=== PATIENT | female | born 1970 | race Caucasian/White ===

== ENCOUNTER 2016-12-28 14:54 | Emergency (ER) | payer BC ==
[2016-12-28] MEDS ORDERED: Sodium Chloride 0.9% 1,000 ML IV SCH (15:30)
[2016-12-28 15:41] LABS: CHLORIDE,CL 104 mmol/L (98-107); SODIUM,NA 138 mmol/L (136-145)
[2016-12-28] MEDS ORDERED: Ketorolac 30 MG/ML SDV IVPUSH ONE (15:49)
[2016-12-28] MEDS ORDERED: Dexamethasone 10 MG/ML SDV IVPUSH ONE (15:51)
[2016-12-28] MEDS ORDERED: Ondansetron 4 MG/2 ML SDV IVPUSH ONE (15:51)
--- NOTE | 2016-12-28 15:58 | EDM.PDOC ---
ED HPI NEURO - General Chief Complaint: Neuro Symptoms/Deficits Stated Complaint: stroke symptoms Time Seen by Provider: 12/28/16 15:10 Source of Information: Reports: Patient, Family History Limitations: Reports: No limitations - History of Present Illness INITIAL COMMENTS - FREE TEXT/NARRATIVE: Patient awoke from sleep and spent about 20 minutes texting. Began to notice a funny feeling "like numbness but could still feel" in the right hand. The feeling moved to the whole right side of the body. Presents with about 1 hour of symptoms to ER. Is weak "on the right side of Head" Speech garbled, right side arm and leg weak. Timing/Duration: Reports: Hour(s): (1) Location (Neuro Complaint): Reports: face, upper extremity, left, lower extremity, right Quality (Neuro Complaint): Reports: weakness, altered gait, altered sensation, altered speech Severity: moderate Improves with: Reports: None Worsens with: Reports: None Context, General: Reports: Other (as above) Associated Symptoms: Reports: no other symptoms. 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) - Related Data Allergies/ADRs: Allergies Allergy/AdvReac Type Severity Reaction Status Date / Time No Known Allergies Allergy Verified 12/28/16 15:31 Home Meds: Home Meds Citalopram [Celexa] 20 mg PO DAILY 12/28/16 [History] ClonazePAM [KlonoPIN] 0.5 mg PO BEDTIME 12/28/16 [History] Gabapentin [Neurontin] 600 mg PO BID 12/28/16 [History] Meloxicam 15 mg PO DAILY 12/28/16 [History] Omeprazole 20 mg PO DAILY 12/28/16 [History] tiZANidine [Zanaflex] 2 - 4 mg PO Q8H PRN 12/28/16 [History] ED ROS GENERAL - Review of Systems Review Of Systems: See Below Constitutional: Reports: no symptoms HEENT: Reports: No symptoms Respiratory: Reports: No Symptoms Cardiovascular: Reports: No symptoms Endocrine: Reports: no symptoms GI/Abdominal: Reports: No symptoms : Reports: no symptoms Musculoskeletal: Reports: no symptoms Skin: Reports: no symptoms Neurological: Reports: Paresthesia, Trouble Speaking, Difficulty Walking ( dragging right leg), Weakness, Change in Speech, Gait Disturbance. Denies: Confusion, Dizziness, Headache, Pre-Existing Deficit, Seizure, Syncope, Tingling , Tremors Psychiatric: Reports: Other (High stress lately) Hematologic/Lymphatic: Reports: no symptoms Immunologic: Reports: no symptoms ED EXAM, NEURO - Physical Exam Exam: See Below Exam Limited By: No limitations General Appearance: alert, WD/WN, no apparent distress Eye Exam: bilateral eye: EOMI, PERRL (traige nurse reported sluggish right pupil (resolved)) Ears: normal external exam Nose: normal inspection, normal mucosa, no blood Throat/Mouth: Normal inspection, Normal lips, Normal oropharynx, Normal voice, Other Head Exam: atraumatic, normocephalic Neck: normal inspection, supple, non-tender, full range of motion Respiratory/Chest: no respiratory distress, lungs clear, normal breath sounds, no accessory muscle use Cardiovascular: normal peripheral pulses, regular rate, rhythm, no edema, no murmur GI/Abdominal: normal bowel sounds, soft, non tender, no organomegaly Neurological: alert, normal mood/affect, CN II-XII intact, oriented x 3, other ( see NIH Stroke Scale) Back Exam: normal inspection Extremities: normal inspection, normal range of motion, non-tender, no pedal edema, normal capillary refill Psychiatric: normal affect, flat affect Skin Exam: Warm, Dry, Intact, Normal color, No rash Course - Vital Signs Last Recorded V/S: Last Vital Signs Temp 36.8 C 12/28/16 15:00 Pulse 73 12/28/16 15:59 Resp 16 12/28/16 15:59 BP 131/72 12/28/16 15:59 Pulse Ox 100 12/28/16 15:59 - Orders/Labs/Meds Orders: Active Orders 24 hr Category Date Time Status Blood Glucose Check, Bedside [RC] ONETIME Care 12/28/16 15:00 Active Cardiac Monitoring [RC] . DIRECTED Care 12/28/16 15:23 Active EKG Documentation Completion [RC] ASDIRECTED Care 12/28/16 15:23 Active Oxygen Therapy [RC] ASDIRECTED Care 12/28/16 15:00 Active Peripheral IV Care [RC] . DIRECTED Care 12/28/16 15:22 Active Chest 1V Frontal [CR] Stat Exams 12/28/16 15:35 Taken Head wo Cont [CT] Routine Exams 12/28/16 Taken PROLACTIN [REF] Stat Lab 12/28/16 15:05 Received Sodium Chloride 0.9% [Normal Saline] 1,000 ml Med 12/28/16 15:30 Active IV ASDIRECTED Sodium Chloride 0.9% [Saline Flush] Med 12/28/16 16:01 Active 10 ml FLUSH ASDIRECTED PRN Medication Orders Sodium Chloride (Normal Saline) 1,000 mls @ 999 mls/hr IV ASDIRECTED DESTINEY Stop: 01/01/17 15:30 Last Admin: 12/28/16 15:37 Dose: 999 mls/hr Sodium Chloride (Saline Flush) 10 ml FLUSH ASDIRECTED PRN PRN Reason: Keep Vein Open Last Admin: 12/28/16 16:02 Dose: 10 ml Labs: Laboratory Tests 12/28/16 12/28/16 12/28/16 Range/Units 15:05 15:05 15:05 WBC 6.2 (4.0-10.2) K/uL RBC 4.12 (3.77-5.09) M/uL Hgb 12.6 (11.7-15.5) g/dL Hct 38.4 (34.0-46.0) % MCV 93.2 (84.0-98.0) fL MCH 30.6 (28.2-33.3) pg MCHC 32.8 (31.7-36.0) g/dL RDW 13.2 (11.2-14.1) % Plt Count 266 (150-350) K/uL Neut % (Auto) 61.4 (45.0-80.0) % Lymph % (Auto) 26.2 (10.0-50.0) % Beadle % (Auto) 7.9 (2.0-14.0) % Eos % (Auto) 4.2 (0.0-5.0) % Baso % (Auto) 0.3 (0.0-2.0) % Neut # 3.79 (1.40-7.00) K/uL Lymph # 1.62 (0.50-3.50) K/uL Beadle # 0.49 (0.00-1.00) K/uL Eos # 0.26 (0.00-0.50) K/uL Baso # 0.02 (0.00-0.20) K/uL PT 10.1 (9.8-11.7) SEC INR 1.0 APTT (23.5-30.0) SEC D-Dimer, Quantitative (0-400) ng/mL Sodium 138 (136-145) mmol/L Potassium 3.7 (3.5-5.1) mmol/L Chloride 104 (98-107) mmol/L Carbon Dioxide 23.2 (21.0-32.0) mmol/L BUN 15 (7-18) mg/dL Creatinine 0.69 (0.51-1.17) mg/dL Est Cr Clr Drug Dosing TNP Estimated GFR (MDRD) > 60 mL/min Glucose 111 H (74-106) mg/dL Calcium 8.5 (8.5-10.1) mg/dL Magnesium 1.9 (1.8-2.4) mg/dL Total Bilirubin 0.3 (0.2-1.0) mg/dL AST 15 (15-37) U/L ALT 19 (12-78) U/L Alkaline Phosphatase 107 (46-116) IU/L Creatine Kinase 124 (26-308) U/L Creatine Kinase Index 0.5 (0.0-2.5) % CK-MB (CK-2) 0.60 (0.00-3.60) ng/mL Troponin I 0.000 (0.000-0.056) ng/mL Inv-C-Fchgthsvson Pept 126 H (0-125) pg/mL Total Protein 7.8 (6.4-8.2) g/dL Albumin 3.9 (3.4-5.0) g/dL HCG, Qual (NEGATIVE) 12/28/16 12/28/16 12/28/16 Range/Units 15:05 15:05 15:05 WBC (4.0-10.2) K/uL RBC (3.77-5.09) M/uL Hgb (11.7-15.5) g/dL Hct (34.0-46.0) % MCV (84.0-98.0) fL MCH (28.2-33.3) pg MCHC (31.7-36.0) g/dL RDW (11.2-14.1) % Plt Count (150-350) K/uL Neut % (Auto) (45.0-80.0) % Lymph % (Auto) (10.0-50.0) % Beadle % (Auto) (2.0-14.0) % Eos % (Auto) (0.0-5.0) % Baso % (Auto) (0.0-2.0) % Neut # (1.40-7.00) K/uL Lymph # (0.50-3.50) K/uL Beadle # (0.00-1.00) K/uL Eos # (0.00-0.50) K/uL Baso # (0.00-0.20) K/uL PT (9.8-11.7) SEC INR APTT 25.7 (23.5-30.0) SEC D-Dimer, Quantitative 213 (0-400) ng/mL Sodium (136-145) mmol/L Potassium (3.5-5.1) mmol/L Chloride (98-107) mmol/L Carbon Dioxide (21.0-32.0) mmol/L BUN (7-18) mg/dL Creatinine (0.51-1.17) mg/dL Est Cr Clr Drug Dosing Estimated GFR (MDRD) mL/min Glucose (74-106) mg/dL Calcium (8.5-10.1) mg/dL Magnesium (1.8-2.4) mg/dL Total Bilirubin (0.2-1.0) mg/dL AST (15-37) U/L ALT (12-78) U/L Alkaline Phosphatase (46-116) IU/L Creatine Kinase (26-308) U/L Creatine Kinase Index (0.0-2.5) % CK-MB (CK-2) (0.00-3.60) ng/mL Troponin I (0.000-0.056) ng/mL Xav-B-Jdhjknskaih Pept (0-125) pg/mL Total Protein (6.4-8.2) g/dL Albumin (3.4-5.0) g/dL HCG, Qual Negative (NEGATIVE) Meds: Medications Generic Name Dose Route Start Last Admin Trade Name Freq PRN Reason Stop Dose Admin Sodium Chloride 1,000 mls @ 999 mls/hr 12/28/16 15:30 12/28/16 15:37 Normal Saline IV 01/01/17 15:30 999 mls/hr ASDIRECTED DESTINEY Administration Sodium Chloride 10 ml 12/28/16 16:01 12/28/16 16:02 Saline Flush FLUSH 10 ml ASDIRECTED PRN Administration Keep Vein Open Discontinued Medications Generic Name Dose Route Start Last Admin Trade Name Raegan PRN Reason Stop Dose Admin Dexamethasone 4 mg 12/28/16 15:51 12/28/16 15:58 Dexamethasone IVPUSH 12/28/16 15:52 4 mg ONETIME ONE Administration Ketorolac Tromethamine 30 mg 12/28/16 15:49 12/28/16 15:52 Toradol IVPUSH 12/28/16 15:50 30 mg ONETIME ONE Administration Ondansetron HCl 4 mg 12/28/16 15:51 12/28/16 15:57 Zofran IVPUSH 12/28/16 15:52 4 mg ONETIME ONE Administration - Re-Assessments/Exams Free Text/Narrative Re-Assessment/Exam: 12/28/16 16:02 Over first 45 minutes: Speech difficulty - resolved Right arm drift - resolved Right side weakness - resolved Funny feeling in arm and leg - better Headache started in back of head and moved to right eye, temporal head, and face (pressure) Mild photophobia began. MDM: NIH stroke scale 4 at presentation, resolved to 0-1 at this time with development of a classic migraine GIRON. Will not administer TPA at this time. Continue to observe and treat GIRON Free Text/Narrative Re-Assessment/Exam: 12/28/16 16:24 1.5 hours recheck: All symptoms resolved. GIRON got to 8/10 - Now 2/10 Feels like she is ready to go. Ambulatory without problem. Departure - Departure Time of Disposition: 16:26 Disposition: Home, Self-Care 01 Condition: good Clinical Impression: Hemiplegic migraine Qualifiers: Status migrainosus presence: without status migrainosus Intractability: not intractable Qualified Code(s): G43.409 - Hemiplegic migraine, not intractable, without status migrainosus Forms: ED Department Discharge - Problem List Review Problem List Initiated/Reviewed/Updated: No - My Orders Last 24 Hours: My Active Orders 12/28/16 Head wo Cont [CT] Routine 12/28/16 15:00 Blood Glucose Check, Bedside [RC] ONETIME Oxygen Therapy [RC] ASDIRECTED 12/28/16 15:05 PROLACTIN [REF] Stat 12/28/16 15:22 Peripheral IV Care [RC] . DIRECTED 12/28/16 15:23 Cardiac Monitoring [RC] . DIRECTED EKG Documentation Completion [RC] ASDIRECTED 12/28/16 15:30 Sodium Chloride 0.9% [Normal Saline] 1,000 ml IV ASDIRECTED 12/28/16 15:35 Chest 1V Frontal [CR] Stat 12/28/16 16:01 Sodium Chloride 0.9% [Saline Flush] 10 ml FLUSH ASDIRECTED PRN - Assessment/Plan Last 24 Hours: My Active Orders 12/28/16 Head wo Cont [CT] Routine 12/28/16 15:00 Blood Glucose Check, Bedside [RC] ONETIME Oxygen Therapy [RC] ASDIRECTED 12/28/16 15:05 PROLACTIN [REF] Stat 12/28/16 15:22 Peripheral IV Care [RC] . DIRECTED 12/28/16 15:23 Cardiac Monitoring [RC] . DIRECTED EKG Documentation Completion [RC] ASDIRECTED 12/28/16 15:30 Sodium Chloride 0.9% [Normal Saline] 1,000 ml IV ASDIRECTED 12/28/16 15:35 Chest 1V Frontal [CR] Stat 12/28/16 16:01 Sodium Chloride 0.9% [Saline Flush] 10 ml FLUSH ASDIRECTED PRN Assessment:: Hemiplegic Migraine Plan: Rest, fluids today. F/U with PCP this week to discuss further treatment
[2016-12-28] MEDS ORDERED: Sodium Chloride 0.9% 10 ML Syringe FLUSH PRN (16:01)
[2016-12-28 16:37] VITALS: BP 121/69
== END 2016-12-28 16:50 | disposition home or self-care (01) ==
LOC: LL.ED 14:54
DX: G43.409 Hemiplegic migraine, not intractable, without status migrainosus (principal); Z79.899 Other long term (current) drug therapy
CPT/HCPCS: 36415; 70450; 71010; 80053; 82550; 82553; 83735; 83880; 84146; 84484; 84703; 85025; 85379; 85610; 85730; 93005; 94761; 96361; 96374; 96375; 99285; J1100; J1885; J2405; J7030; J7050; 82962

== ENCOUNTER 2018-12-16 17:16 | Emergency (ER) | payer OTHER ==
[2018-12-16 17:23] VITALS: BP 128/61
--- NOTE | 2018-12-16 18:13 | EDM.PDOC ---
ED HPI GENERAL MEDICAL PROBLEM - General Chief Complaint: Upper Extremity Injury/Pain Stated Complaint: fall at work, left arm injury Time Seen by Provider: 12/16/18 17:45 Source of Information: Reports: Patient History Limitations: Reports: No Limitations - History of Present Illness INITIAL COMMENTS - FREE TEXT/NARRATIVE: Patient comes to ER with complaints of pain related to fall that she had around 0630 this morning at work. Tripped on bed alarm cord. Fell forward, arms outstretched. Complains of right knee pain and left arm pain. Says entire left arm hurts and has difficulty pinpointing exact place where she feels her main injury is located. Pain extends down forearm/around elbow/up proximal arm when she flexes and extends arm. No numbness or tingling. No complaint of muscle weakness. Has diagnosis of fibromyalgia. Pain has worsening throughout day. Able to ambulate. Did not hit head. Denies other obvious injuries. No pain right arm/left leg/pelvis/back/abdomen/neck. 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 Denies: Allergic Rhinitis, Cataract, Glaucoma, Hard of Hearing, Macular Degeneration, Otitis Media, Retinal Detachment Other HEENT History: Patient wears glasses. Cardiovascular History: Reports: CAD, Heart Murmur, AK, Other (See Below). Denies: Afib, Aneurysm, Arrhythmia, Blood Clots/VTE/DVT, Bypass, Cardiomyopathy , Heart Failure, High Cholesterol, Hypertension, PTCA, PVD, Stents, Syncope Other Cardiovascular History: Possible AK in 2004 however no apparent heart catheterization, etc.? Respiratory History: Reports: None. Denies: Asthma, Bronchitis, Recurrent, COPD , Intubation, Difficult, Intubation, Previous, PE, Pneumonia, Recurrent, Pneumothorax, Pulmonary Fibrosis, Sleep Apnea, TB Gastrointestinal History: Reports: Chronic Constipation, GERD. Denies: Celiac Disease, Cholelithiasis, Chronic Diarrhea, Fecal Incontinence, Gastritis, GI Bleed, Hepatitis, Inflammatory Bowel Disease, Irritable Bowel Syndrome, Jaundice , Pancreatitis, PUD Genitourinary History: Reports: Urinary Incontinence. Denies: Acute Renal Failure, Chronic Renal Insuffiency, Renal Calculus, Retention, Urinary, STD, UTI , Recurrent MANAGER PROGRAM MANAGEMENT History: Reports: Dysfunctional Uterine Bleeding, , Therapeutic . Denies: Endometriosis, Fibroids Other MANAGER PROGRAM MANAGEMENT History: LMP 10/13. Full term without complications during pregnancies or deliveries. Elective AB during first trimester with procedure required as below. Musculoskeletal History: Reports: Arthritis, Back Pain, Chronic, Fibromyalgia, Neck Pain, Chronic, Osteoarthritis. Denies: Amputation, Fracture, Gout, RA, SLE Neurological History: Reports: Concussion, Headaches, Chronic, Head Trauma, Migraines, Other (See Below). Denies: Cerebral Aneurysms, CVA, MS, Parkinson's , Seizure, TIA, Vertigo Other Neuro History: Head concussion at age 12. History of migraine equivalent with TIA symptoms on 12/28/16. Psychiatric History: Reports: Anxiety, Depression, Hallucinations, Psych Hospitalization(s), Other (See Below). Denies: Abuse, Victim of, ADD, ADHD, Addiction, Suicide Attempt Other Psychiatric History: History of psychiatric hospitalization for grief reaction and exacerbation of her anxiety depression disorder secondary to her son's successful suicide. Shedid have visual hallucinations of seeing her son prior to the above hospitalization. Endocrine/Metabolic History: Reports: Obesity/BMI 30+. Denies: Diabetes, Gestational, Diabetes, Type I, Diabetes, Type II, Diabetes Mellitus, Type 3c, Hypothyroidism, IDDM Immunologic History: Reports: None. Denies: AIDS, HIV, SLE Oncologic (Cancer) History: Reports: None. Denies: Basal Cell Carcinoma, Breast , Cervix, Hodgkin's Lymphoma, Leukemia, Lymphoma, Malignant Melanoma, Non- Hodgkin's Lymphoma, Squamous Cell Carcinoma Dermatologic History: Reports: None. Denies: Eczema, Psoriasis - Infectious Disease History Infectious Disease History: Reports: Chicken Pox. Denies: C-Difficile, Measles , Meningitis, Mononucleosis, MRSA, Mumps, Pertussis (Whooping Cough), Rubella, Scarlet Fever, Shingles, TB, VRE - Past Surgical History Head Surgeries/Procedures: Reports: None HEENT Surgical History: Reports: Adenoidectomy, Oral Surgery, Tonsillectomy, Other (See Below). 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 Multiple teeth extractions with complete upper dentures. Cardiovascular Surgical History: Reports: None. Denies: Varicose Respiratory Surgical History: Reports: None. Denies: Thoracentesis GI Surgical History: Reports: None. Denies: Appendectomy, Cholecystectomy, Colonoscopy, EGD, Hernia, Abdominal, Hernia, Inguinal, Hernia Repair/Other Female Surgical History: Reports: D&C, Dilitation & Evacuation, Tubal Ligation, Other (See Below). Denies: Breast Biopsy Other Female Surgeries/Procedures: Bilateral tubal ligation age 28. D&C secondary elective SAB as above. Endocrine Surgical History: Reports: None. Denies: Thyroid Biopsy Neurological Surgical History: Reports: None. Denies: C-Spine, Discectomy, Laminectomy, Lumbar Spine, Sacral Spine, Spinal Fusion, Thoracic Spine, Vertebroplasty Musculoskeletal Surgical History: Reports: None. Denies: Arthroscopic Procedure , Carpal Tunnel, Ganglion Cyst, Joint Replacement, ORIF Oncologic Surgical History: Reports: None Dermatological Surgical History: Reports: None - Past Imaging History Past Imaging History: Reports: CAT Scan (CT of the head on 12/28/16.), MRI (C- spine on 01/06/17). Denies: Angiography Social & Family History - Family History Psychiatric: Reports: Anxiety, Depression, Suicide Attempt, Other (See Below) Other Psychiatric Family History: Son with successful suicide attempt at age 24. - Tobacco Use Smoking Status *Q: Never Smoker - Caffeine Use Caffeine Use: Reports: Coffee - Recreational Drug Use Recreational Drug Use: No - Living Situation & Occupation Living situation: Reports: (2013thi ), ( from second 2007 with one child from that relationship. 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 ED EXAM, GENERAL - Physical Exam Exam: See Below Exam Limited By: No Limitations General Appearance: Alert, WD/WN, No Apparent Distress Eye Exam: Bilateral Eye: EOMI, PERRL Nose: No: Nasal Deformity Throat/Mouth: Normal Voice, No Airway Compromise Head: Atraumatic, Normocephalic Neck: Supple, Non-Tender Respiratory/Chest: No Respiratory Distress, Lungs Clear, Normal Breath Sounds, No Accessory Muscle Use, Chest Non-Tender Cardiovascular: Normal Peripheral Pulses, Regular Rate, Rhythm, No Murmur GI/Abdominal: Soft, Non-Tender (Female) Exam: Deferred Rectal (Female) Exam: Deferred Back Exam: No: Muscle Spasm, Paraspinal Tenderness, Vertebral Tenderness Extremities: Other (Bruising noted over right knee. No joint effusion. No obvious bruising left arm. Able to raise left arm over head. Able to flex/ etend left elbow and wrist. Fingers nontender. No deformity noted. Tendon function appears intact. Palpation of wrist/forearm/elbow/proximal humerus reveals diffuse non-focal tenderness. Difficult to pinpoint any specific area of increased pain compared to rest of limb. Proximal legs/pelvis non-tender.). No: Joint Swelling, Increased Warmth, Mottled, Pallor, Redness Neurological: Alert, Oriented, Other (slightly antalgic gait, favors right knee/ leg) Psychiatric: Normal Affect, Normal Mood Skin Exam: Warm, Dry, Ecchymosis (right knee). No: Wound/Incision Course - Vital Signs Last Recorded V/S: Last Vital Signs Temp 36.6 C 12/16/18 17:17 Pulse 83 12/16/18 17:17 Resp 16 12/16/18 17:17 BP 128/61 12/16/18 17:17 Pulse Ox 99 12/16/18 17:17 - Orders/Labs/Meds Orders: Active Orders 24 hr Category Date Time Status Forearm 2V Lt [CR] Stat Exams 12/16/18 17:41 Taken Humerus Lt [CR] Stat Exams 12/16/18 18:06 Ordered Knee 3V Rt [CR] Stat Exams 12/16/18 18:05 Ordered Wrist 2V Lt [CR] Stat Exams 12/16/18 18:06 Ordered - Radiology Interpretation Free Text/Narrative:: Due to difficulty in pinpointing pain complaint, and wide area of discomfort reported, Xrays of left humerus/forearm/wrist obtained. Right knee films included. No obvious fractures noted. - Re-Assessments/Exams Free Text/Narrative Re-Assessment/Exam: 12/16/18 18:49 No focal fractures identified. Patient received IM Toradol and single PO dose of Tramadol in ER. She has follow up appointment tomorrow with primary provider. WSI sheet filled out. She is to see how she feels tomorrow at time of follow up . Further work restrictions can be determined at that time as can medication adjustments. Encouraged to use either Aleve or Ibuprofen or Tylenol for pain as well as to apply ice frequently to sore areas. Departure - Departure Time of Disposition: 18:58 Disposition: Home, Self-Care 01 Condition: Good Clinical Impression: Left arm pain Fall Qualifiers: Encounter type: initial encounter Qualified Code(s): W19.XXXA - Unspecified fall, initial encounter Contusion of right knee Qualifiers: Encounter type: initial encounter Qualified Code(s): S80.01XA - Contusion of right knee, initial encounter - Discharge Information *PRESCRIPTION DRUG MONITORING PROGRAM REVIEWED*: Not Applicable *COPY OF PRESCRIPTION DRUG MONITORING REPORT IN PATIENT TRESA: Not Applicable Instructions: Contusion, [id number] Forms: ED Department Discharge Additional Instructions: Apply ice for 10-15 minutes every few hours for the next several days to help with pain/swelling. Tylenol as needed for pain. You may take Aleve or Ibuprofen for pain also, but do not take at same time as both are NSAIDs and can cause damage to your stomach. Warm baths using magnesium salts may also be helpful. Follow up tomorrow at your scheduled appointment with your primary provider. Further work restrictions as well as pain medication adjustments can be considered at that time depending on how you feel tomorrow. Follow up otherwise as needed if you have problems. - My Orders Last 24 Hours: My Active Orders 12/16/18 17:41 Forearm 2V Lt [CR] Stat 12/16/18 18:05 Knee 3V Rt [CR] Stat 12/16/18 18:06 Humerus Lt [CR] Stat Wrist 2V Lt [CR] Stat - Assessment/Plan Last 24 Hours: My Active Orders 12/16/18 17:41 Forearm 2V Lt [CR] Stat 12/16/18 18:05 Knee 3V Rt [CR] Stat 12/16/18 18:06 Humerus Lt [CR] Stat Wrist 2V Lt [CR] Stat
[2018-12-16] MEDS: Ketorolac 60 MG/2 ML SDV IM ONE (18:51)
[2018-12-16] MEDS: traMADol 50 MG Tab PO ONE (18:51)
== END 2018-12-16 19:03 | disposition home or self-care (01) ==
LOC: LL.ED 17:16
DX: S80.01XA Contusion of right knee, initial encounter (principal); M79.602 Pain in left arm; I25.10 Atherosclerotic heart disease of native coronary artery without angina pectoris; I25.2 Old myocardial infarction; E66.9 Obesity, unspecified; Z79.899 Other long term (current) drug therapy; W06.XXXA Fall from bed, initial encounter
CPT/HCPCS: 73060-LT; 73090-LT; 73100-LT; 73562-RT; 96372; 99283-25; A9270-GY; J1885

== ENCOUNTER 2021-05-22 17:15 | Emergency (ER) | payer BC ==
--- NOTE | 2021-05-22 18:58 | EDM.PDOC ---
ED HPI GENERAL MEDICAL PROBLEM - General Chief Complaint: General Stated Complaint: chest "heaviness" head "heaviness" stomach "on fir Time Seen by Provider: 05/22/21 17:46 Source of Information: Reports: Patient, Family History Limitations: Reports: No Limitations - History of Present Illness INITIAL COMMENTS - FREE TEXT/NARRATIVE: Patient comes in with a variety of complaints. Has had similar issues in past but no specific cause found by PCP and during ER visit to [place] a few months back. Complaints include bilateral headache/tightness with discomfort going down neck muscles/tightness. Chest muscle soreness. She feels like her chest needs to be cracked at chiropractor. Extreme fatigue/having hard time getting up and getting going. Arms/legs tired/tingling. Also stomach "on fire"/heartburn. Patient's daughter was worried and brought patient in to be seen. Main worry was to make certain no heart attack causing the chest pain and no stroke causing the limb weakness. Long history of fibromyalgia. Above symptoms have been present previously/waxed and waned. None are acute. See here in 2019 for headache/tightness and tingling in arms. No shortness of breath. No change in pattern of pain in chest/neck/head. O2 sats 99% room air. Abdominal Pain Score (Numeric/FACES): 6 - Related Data Allergies Allergy/AdvReac Type Severity Reaction Status Date / Time No Known Allergies Allergy Verified 05/22/21 17:52 Home Meds: Home Meds Omeprazole 20 mg PO DAILY PRN 12/28/16 [History] Acetaminophen/Phenyltoloxamine [Tension Headache Reliever] 2 tab PO Q6HR PRN 10/15/18 [History] DULoxetine [Cymbalta] 90 mg PO DAILY 10/15/18 [History] busPIRone [Buspar] 0.5 tab PO BID 10/15/18 [History] Gabapentin [Neurontin] 300 mg PO TID 05/22/21 [History] Rosuvastatin [Crestor] 20 mg PO DAILY 05/22/21 [History] Past Medical History HEENT History: Reports: Impaired Vision, Other (See Below). Denies: Allergic Rhinitis, Cataract, Glaucoma, Hard of Hearing, Macular Degeneration, Otitis Media, Retinal Detachment Other HEENT History: Patient wears glasses. Cardiovascular History: Reports: CAD, Heart Murmur, NC, Other (See Below). Denies: Afib, Aneurysm, Arrhythmia, Blood Clots/VTE/DVT, Bypass, Cardiomyopathy, Heart Failure, High Cholesterol, Hypertension, PTCA, PVD, Stents, Syncope Other Cardiovascular History: Possible NC in 2004 however no apparent heart catheterization, etc.? Respiratory History: Reports: None. Denies: Asthma, Bronchitis, Recurrent, COPD, Intubation, Difficult, Intubation, Previous, PE, Pneumonia, Recurrent, Pneumothorax, Pulmonary Fibrosis, Sleep Apnea, TB Gastrointestinal History: Reports: Chronic Constipation, GERD. Denies: Celiac Disease, Cholelithiasis, Chronic Diarrhea, Fecal Incontinence, Gastritis, GI Bleed, Hepatitis, Inflammatory Bowel Disease, Irritable Bowel Syndrome, Jaundice, Pancreatitis, PUD Genitourinary History: Reports: Urinary Incontinence. Denies: Acute Renal Failure, Chronic Renal Insuffiency, Renal Calculus, Retention, Urinary, STD, UTI, Recurrent EMT DISPATCHER History: Reports: Dysfunctional Uterine Bleeding, , Therapeutic . Denies: Endometriosis, Fibroids Other EMT DISPATCHER History: LMP 10/13. Full term without complications during pregnancies or deliveries. Elective AB during first trimester with procedure required as below. Musculoskeletal History: Reports: Arthritis, Back Pain, Chronic, Fibromyalgia, Neck Pain, Chronic, Osteoarthritis. Denies: Amputation, Fracture, Gout, RA, SLE Neurological History: Reports: Concussion, Headaches, Chronic, Head Trauma, Migraines, Other (See Below). Denies: Cerebral Aneurysms, CVA, MS, Parkinson's, Seizure, TIA, Vertigo Other Neuro History: Head concussion at age 12. History of migraine equivalent with TIA symptoms on 12/28/16. Psychiatric History: Reports: Anxiety, Depression, Hallucinations, Psych Hospitalization(s), Other (See Below). Denies: Abuse, Victim of, ADD, ADHD, Addiction, Suicide Attempt Other Psychiatric History: History of psychiatric hospitalization for grief reaction and exacerbation of her anxiety depression disorder secondary to her son's successful suicide. Shedid have visual hallucinations of seeing her son prior to the above hospitalization. Endocrine/Metabolic History: Reports: Obesity/BMI 30+. Denies: Diabetes, Gestational, Diabetes, Type I, Diabetes, Type II, Diabetes Mellitus, Type 3c, Hypothyroidism, IDDM Immunologic History: Reports: None. Denies: AIDS, HIV, SLE Oncologic (Cancer) History: Reports: None. Denies: Basal Cell Carcinoma, Breast, Cervix, Hodgkin's Lymphoma, Leukemia, Lymphoma, Malignant Melanoma, Non- Hodgkin's Lymphoma, Squamous Cell Carcinoma Dermatologic History: Reports: None. Denies: Eczema, Psoriasis - Infectious Disease History Infectious Disease History: Reports: Chicken Pox. Denies: C-Difficile, Measles, Meningitis, Mononucleosis, MRSA, Mumps, Pertussis (Whooping Cough), Rubella, Scarlet Fever, Shingles, TB, VRE - Past Surgical History Head Surgeries/Procedures: Reports: None HEENT Surgical History: Reports: Adenoidectomy, Oral Surgery, Tonsillectomy, Other (See Below). 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 Multiple teeth extractions with complete upper dentures. Cardiovascular Surgical History: Reports: None. Denies: Varicose Respiratory Surgical History: Reports: None. Denies: Thoracentesis GI Surgical History: Reports: None. Denies: Appendectomy, Cholecystectomy, Colonoscopy, EGD, Hernia, Abdominal, Hernia, Inguinal, Hernia Repair/Other Female Surgical History: Reports: D&C, Dilitation & Evacuation, Tubal Ligation, Other (See Below). Denies: Breast Biopsy Other Female Surgeries/Procedures: Bilateral tubal ligation age 28. D&C secondary elective SAB as above. Endocrine Surgical History: Reports: None. Denies: Thyroid Biopsy Neurological Surgical History: Reports: None. Denies: C-Spine, Discectomy, Laminectomy, Lumbar Spine, Sacral Spine, Spinal Fusion, Thoracic Spine, Vertebroplasty Musculoskeletal Surgical History: Reports: None. Denies: Arthroscopic Procedure, Carpal Tunnel, Ganglion Cyst, Joint Replacement, ORIF Oncologic Surgical History: Reports: None Dermatological Surgical History: Reports: None - Past Imaging History Past Imaging History: Reports: CAT Scan (CT of the head on 12/28/16.), MRI (C- spine on 01/06/17). Denies: Angiography Social & Family History - Family History Psychiatric: Reports: Anxiety, Depression, Suicide Attempt, Other (See Below) Other Psychiatric Family History: Son with successful suicide attempt at age 24. - Caffeine Use Caffeine Use: Reports: Coffee - Living Situation & Occupation Living situation: Reports: (2013third ), ( from second 2007 with one child from that relationship. 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 Denies: Shortness of Breath, Pleuritic Chest Pain, Cough Cardiovascular: Reports: Chest Pain, Blood Pressure Problem (high earlier at home). Denies: Dyspnea on Exertion, Edema, Lightheadedness, Palpitations, PND, Syncope GI/Abdominal: Reports: Constipation (chronic), Distension (intermittent abdominal gas/bloating, not currently). Denies: Black Stool, Bloody Stool, Diarrhea, Decreased Appetite, Difficulty Swallowing, Nausea, Vomiting : Reports: No Symptoms Musculoskeletal: Reports: Neck Pain, Back Pain, Muscle Pain Skin: Reports: No Symptoms Neurological: Reports: Headache, Tingling (arms/legs), Weakness (global). Denies: Change in Speech Psychiatric: Reports: No Symptoms Hematologic/Lymphatic: Reports: No Symptoms ED EXAM, GENERAL - Physical Exam Exam: See Below Exam Limited By: No Limitations General Appearance: Alert, No Apparent Distress, Obese Eye Exam: Bilateral Eye: EOMI, PERRL Ears: Normal External Exam, Hearing Grossly Normal Nose: No: Nasal Deformity, Nasal Swelling, Nasal Drainage Throat/Mouth: Normal Lips, Normal Voice, No Airway Compromise Head: Atraumatic, Normocephalic Neck: Normal Inspection, Supple, Full Range of Motion, Other (muscle tenderness bilateral neck muscles) Respiratory/Chest: No Respiratory Distress, Lungs Clear, Normal Breath Sounds, No Accessory Muscle Use, Other (anterior chest wall tender with palpation bilateral and over sternum) Cardiovascular: Regular Rate, Rhythm, No Murmur GI/Abdominal: Normal Bowel Sounds, Soft, No Distention (obese), Other (tender epigastric area) (Female) Exam: Deferred Rectal (Female) Exam: Deferred Back Exam: No: Muscle Spasm Extremities: Normal Range of Motion, Normal Capillary Refill, Other (moves all 4 limbs equally) Neurological: Alert, Oriented, Normal Cognition, Normal Gait Psychiatric: Normal Affect, Normal Mood Skin Exam: Warm, Dry, Intact, Normal Color #1 Interpretation EKG Date: 05/22/21 Time: 18:57 Rhythm: NSR Rate (Beats/Min): 69 [place]: Normal P-Wave: Present QRS: Normal ST-T: Normal QT: Normal Comparison: NA - No Prior EKG Course - Vital Signs Last Recorded V/S: Last Vital Signs Temp Pulse 67 05/22/21 20:46 Resp 15 05/22/21 20:46 BP 130/67 05/22/21 20:46 Pulse Ox 99 05/22/21 20:46 - Orders/Labs/Meds Orders: Active Orders 24 hr Category Date Time Status EKG Documentation Completion [RC] ASDIRECTED Care 05/22/21 18:20 Active Chest 2V [CR] Stat Exams 05/22/21 18:21 Taken Head wo Cont [CT] Stat Exams 05/22/21 18:17 Taken Labs: Laboratory Tests 05/22/21 05/22/21 05/22/21 Range/Units 18:33 18:33 18:33 WBC 4.4 (4.0-10.2) K/uL RBC 4.22 (3.77-5.09) M/uL Hgb 12.7 (11.7-15.5) g/dL Hct 39.6 (34.0-46.0) % MCV 93.8 (84.0-98.0) fL MCH 30.1 (28.2-33.3) pg MCHC 32.1 (31.7-36.0) g/dL RDW 13.5 (11.2-14.1) % Plt Count 284 (150-350) K/uL Neut % (Auto) 50.6 (45.0-80.0) % Lymph % (Auto) 37.2 (10.0-50.0) % Barren % (Auto) 7.4 (2.0-14.0) % Eos % (Auto) 4.3 (0.0-5.0) % Baso % (Auto) 0.5 (0.0-2.0) % Neut # (Auto) 2.24 (1.40-7.00) K/uL Lymph # (Auto) 1.65 (0.50-3.50) K/uL Barren # (Auto) 0.33 (0.00-1.00) K/uL Eos # (Auto) 0.19 (0.00-0.50) K/uL Baso # (Auto) 0.02 (0.00-0.20) K/uL Sodium 144 (136-145) mmol/L Potassium 3.9 (3.5-5.1) mmol/L Chloride 108 H (98-107) mmol/L Carbon Dioxide 28.4 (21.0-32.0) mmol/L Anion Gap 11.5 (7-15) meq/L BUN 11 (7-18) mg/dL Creatinine 0.88 (0.51-1.17) mg/dL Est Cr Clr Drug Dosing 72.39 mL/min Estimated GFR (MDRD) > 60 mL/min Glucose 102 H (70-99) mg/dL Lactic Acid 0.5 (0.4-2.0) mmol/L Calcium 8.9 (8.5-10.1) mg/dL Magnesium 1.9 (1.8-2.4) mg/dL Total Bilirubin 0.5 (0.2-1.0) mg/dL AST 17 (15-37) U/L ALT 24 (12-78) U/L Alkaline Phosphatase 123 H (46-116) IU/L Troponin I High Sens < 4 (<=51) ng/L Total Protein 7.7 (6.4-8.2) g/dL Albumin 3.9 (3.4-5.0) g/dL Specimen Type Urine Color Urine Appearance Urine pH (5.0-9.0) Ur Specific [place] (1.005-1.030) Urine Protein (NEGATIVE) mg/dL Urine Glucose (UA) (NEGATIVE) mg/dL Urine Ketones (NEGATIVE) mg/dL Urine Occult Blood (NEGATIVE) Urine Nitrite (NEGATIVE) Urine Bilirubin (NEGATIVE) Urine Urobilinogen (0.2-1.0) E.U./dL Ur Leukocyte Esterase (NEGATIVE) Urine RBC /HPF Urine WBC /HPF Ur Epithelial Cells /LPF Urine Bacteria (NONE TO FEW) /HPF Urine Other 05/22/21 Range/Units 19:30 WBC (4.0-10.2) K/uL RBC (3.77-5.09) M/uL Hgb (11.7-15.5) g/dL Hct (34.0-46.0) % MCV (84.0-98.0) fL MCH (28.2-33.3) pg MCHC (31.7-36.0) g/dL RDW (11.2-14.1) % Plt Count (150-350) K/uL Neut % (Auto) (45.0-80.0) % Lymph % (Auto) (10.0-50.0) % [place] % (Auto) (2.0-14.0) % Eos % (Auto) (0.0-5.0) % Baso % (Auto) (0.0-2.0) % Neut # (Auto) (1.40-7.00) K/uL Lymph # (Auto) (0.50-3.50) K/uL Barren # (Auto) (0.00-1.00) K/uL Eos # (Auto) (0.00-0.50) K/uL Baso # (Auto) (0.00-0.20) K/uL Sodium (136-145) mmol/L Potassium (3.5-5.1) mmol/L Chloride (98-107) mmol/L Carbon Dioxide (21.0-32.0) mmol/L Anion Gap (7-15) meq/L BUN (7-18) mg/dL Creatinine (0.51-1.17) mg/dL Est Cr Clr Drug Dosing mL/min Estimated GFR (MDRD) mL/min Glucose (70-99) mg/dL Lactic Acid (0.4-2.0) mmol/L Calcium (8.5-10.1) mg/dL Magnesium (1.8-2.4) mg/dL Total Bilirubin (0.2-1.0) mg/dL AST (15-37) U/L ALT (12-78) U/L Alkaline Phosphatase (46-116) IU/L Troponin I High Sens (<=51) ng/L Total Protein (6.4-8.2) g/dL Albumin (3.4-5.0) g/dL Specimen Type Urinvoid Urine Color Yellow Urine Appearance Cloudy Urine pH 5.5 (5.0-9.0) Ur Specific [place] 1.020 (1.005-1.030) Urine Protein Trace H (NEGATIVE) mg/dL Urine Glucose (UA) Negative (NEGATIVE) mg/dL Urine Ketones Negative (NEGATIVE) mg/dL Urine Occult Blood Negative (NEGATIVE) Urine Nitrite Negative (NEGATIVE) Urine Bilirubin Negative (NEGATIVE) Urine Urobilinogen 0.2 (0.2-1.0) E.U./dL Ur Leukocyte Esterase Negative (NEGATIVE) Urine RBC 0-5 /HPF Urine WBC 0-5 /HPF Ur Epithelial Cells Many H /LPF Urine Bacteria Moderate H (NONE TO FEW) /HPF Urine Other See note H Meds: Medications Discontinued Medications Generic Name Dose Route Start Last Admin Trade Name Freq PRN Reason Stop Dose Admin Al Hydroxide/Mg Hydroxide 30 ml 05/22/21 18:51 05/22/21 19:10 Gi Cocktail Oral Solution 30 Ml PO 05/22/21 18:52 30 ml ONETIME ONE Administration Pantoprazole Sodium 40 mg 05/22/21 19:57 Pantoprazole 40 Mg Tab.Cr PO 05/22/21 19:58 ONETIME ONE - Re-Assessments/Exams Free Text/Narrative Re-Assessment/Exam: 05/22/21 19:03 Current complaints are not new per history, but are an acute exacerbation of previously present problems. After reviewing patient's history an agreed upon approach formulated with patient and her daughter. Focus tonight will be checking for any obvious acute abnormalities, including head CT, chest xray, and labs. Patient has multiple chronic issues including fibromyalgia and headaches and current complaints could reflect acute exacerbation of those issues. Plan will be to have patient follow up with her clinic if no acute abnormalities noted. GI cocktail ordered for epigastric pain. Has history of GERD. Long time spent with patient and her daughter concerning lifestyle changes that could be tried that could be helpful with fibro/GERD/chronic pain complaints. 05/22/21 19:57 Labs unremarkable. Chest xray unremarkable. No significant change with epigastric discomfort after GI cocktail. Head CT pending. Patient declines Toradol. Chest wall pain feels better with warm pack. 05/22/21 20:[address] negative for acute changes per Radiology faxed at 20:44 Books/resources listed and given to patient's daughter for lifestyle changes that may be helpful with managing her Fibro symptoms. Departure - Departure Time of Disposition: 20:51 Disposition: Home, Self-Care 01 Condition: Good Clinical Impression: Fibromyalgia, Chest wall pain, chronic Chronic headaches Qualifiers: Headache type: unspecified Intractability: intractable Qualified Code(s): R51.9 - Headache, unspecified - Discharge Information *PRESCRIPTION DRUG MONITORING PROGRAM REVIEWED*: Not Applicable *COPY OF PRESCRIPTION DRUG MONITORING REPORT IN PATIENT TRESA: Not Applicable Instructions: Myofascial Pain Syndrome and Fibromyalgia Referrals: PCP,Unknown [Primary Care Provider] - Forms: ED Department Discharge Additional Instructions: Follow up with your primary provider. Consider chiropractor adjustment to see if it helps. Recommend stool testing for H.Pylori (can cause heartburn like pain). Discuss possible Lyme/tick panel testing to help assess if any contribution from tick borne disease. Review current pain management strategies with pain clinic. Continue to observe for any additional changes in symptoms and follow up otherwise as needed if there are additional concerns. Sepsis Event Note (ED) - Focused Exam Vital Signs: Vital Signs Pulse Resp BP Pulse Ox 05/22/21 20:46 67 15 130/67 99 05/22/21 20:12 67 12 132/61 99 05/22/21 19:45 131/71 05/22/21 19:10 72 16 130/73 100 05/22/21 18:30 75 16 121/63 97 05/22/21 18:00 78 17 129/83 98 05/22/21 17:30 80 16 119/74 98 - My Orders Last 24 Hours: My Active Orders 05/22/21 18:17 Head wo Cont [CT] Stat 05/22/21 18:20 EKG Documentation Completion [RC] ASDIRECTED 05/22/21 18:21 Chest 2V [CR] Stat - Assessment/Plan Last 24 Hours: My Active Orders 05/22/21 18:17 Head wo Cont [CT] Stat 05/22/21 18:20 EKG Documentation Completion [RC] ASDIRECTED 05/22/21 18:21 Chest 2V [CR] Stat
[2021-05-22 19:01] LABS: CHLORIDE,CL 108 mmol/L (98-107); SODIUM,NA 144 mmol/L (136-145)
[2021-05-22 19:02] LABS: ANION GAP 11.5 meq/L (7-15)
[2021-05-22] MEDS: GI Cocktail Oral Solution 30 ML PO ONE (19:10)
[2021-05-22] MEDS ORDERED: Pantoprazole 40 MG Tab.CR PO ONE (19:57)
[2021-05-22 20:13] VITALS: PULSE 67
[2021-05-22 20:46] VITALS: BP 130/67
== END 2021-05-22 20:55 | disposition home or self-care (01) ==
LOC: LL.ED 17:15 → SUPCPDRO 17:15 → LL.ED 20:55
DX: R07.89 Other chest pain (principal); G89.29 Other chronic pain; R51.9 Headache, unspecified; M79.7 Fibromyalgia; I25.10 Atherosclerotic heart disease of native coronary artery without angina pectoris; I25.2 Old myocardial infarction; K21.9 Gastro-esophageal reflux disease without esophagitis; M19.90 Unspecified osteoarthritis, unspecified site; E66.9 Obesity, unspecified; Z68.39 Body mass index [BMI] 39.0-39.9, adult; Z79.899 Other long term (current) drug therapy
CPT/HCPCS: 36415; 70450; 71046; 80053; 81001; 83605; 83735; 84484; 85025; 93005; 93010; 99284; 99284-25; A9270-GY

== ENCOUNTER 2021-07-05 11:22 | Day surgery (SDC) | payer BC ==
--- OUTSIDE RECORDS SUMMARY | 2021-05-31 13:45 | XMSREPORT | Referral Summary ---
:1970 [facility] Address [address] [place] [address] [address] [facility] [place] [address] Care Team Providers Name Role Phone Sridevi Zhou PA-C Primary Care Provider Sridevi Zhou PA-C Attributed Provider Reason for Referral Transitions of Care (Routine) Status Reason Specialty Diagnoses / Referred By Referred To Procedures Contact Contact New Request Patient Diagnoses Generalized abdominal pain Gastroesophageal reflux disease, unspecified whether esophagitis present Eva Zhou, Health, [facility] Preference JORGE ALBERTO [place], [address] [place] [phone] Phone: Fax: Reason for Visit Reason Comments Urgent Care Follow Up Was seen for heaviness in ch est, burning in stomach, and diziness. Abdominal Pain Burning pain that comes and goes. Just happens randomly. Been going on for a couple of wee ks. Encounter Details Date Type Department Care Team Description 05/31/2021 Office Visit [facility] Eva Zhou Gastroesopha geal reflux disease, unspecified whether esophagitis present (Primary Dx); [facility] JORGE ALBERTO Generalized abdominal pain [address] [place] [address] [place] [address] [phone] Allergies No Known Active Allergiesdocumented as of this encounter (statuses as of 05/31/2021) Medications Medication Sig Dispensed Refills Start Date End Date Status nystatin Apply liberally to 1 each 1 11/03/2017 Active POWDIndications: affected area twice Intertrigo daily (on dry, clean skin) for 2 weeks sumatriptan (IMITREX) Take 1 tablet (100 12 tablet 12 9 Active 100 mg mg) by mouth as tabletIndications: needed for migraine Migraine without aura Take at onset of and without status headache, may migrainosus, not repeat in 2 hours intractable if needed. Additional Information Patient not taking. Reported on 05/31/2021 aspirin (ECOTRIN LOW Take 1 tablet 42 tablet 0 05/11/2020 Active STRENGTH) 81 MG enteric (81 mg) by coated tabletIndications: mouth 1 time SVT (supraventricular per day tachycardia) (HCC) Hypertonic Nasal Wash 1 Bottle by 1 each 3 06/20/2020 Active (SINUS RINSE BOTTLE KIT) Nasal route 2 PACKIndications: Chronic times a day maxillary sinusitis NeilMed Sinus Rinse Kit - Isotonic nasal wash rosuvastatin (CRESTOR) 20 Take 1 tablet 90 tablet 1 06/28/2020 Active mg tabletIndications: (20 mg) by Pure hypercholesterolemia mouth every night at bedtime acetaminophen (TYLENOL) Take 2 tablets 20 tablet 0 07/03/2020 Active 500 mg tabletIndications: (1,000 mg) by Status post mouth Every 6 cholecystectomy hours busPIRone (BUSPAR) 15 mg TAKE 1/2 TABLET 90 tablet 1 0 Active tabletIndications: (7.5 MG) BY Anxiety and depression MOUTH 2 TIMES A DAY dicyclomine (BENTYL) 10 Take 1 capsule 30 capsule 0 12/21/2020 Active mg capsuleIndications: (10 mg) by Myofascial pain, Pain of mouth 3 times a upper abdomen day as needed for other (Specify) (abdominal pain) Hold Flexeril and Robaxin with this medication DULoxetine (CYMBALTA) 30 Take one 90 capsule 4 01/29/2021 Active mg capsuleIndications: capsule daily Fibromyalgia syndrome in addition to your 60 mg capsule DULoxetine (CYMBALTA) 60 Take 1 capsule 90 capsule 1 1 Active mg capsuleIndications: (60 mg) by Recurrent major mouth 1 time depressive disorder, in per day Take in remission (HCC) addition to your 30 mg capsule gabapentin (NEURONTIN) TAKE 1 CAPSULE 90 capsule 0 02/22/2021 Active 300 mg (300 MG) BY capsuleIndications: MOUTH 3 TIMES A Chronic right-sided low DAY back pain with bilateral sciatica, Fibromyalgia syndrome omeprazole (PRILOSEC) 20 Take 2 capsules 118 capsule 0 021 Active mg capsuleIndications: (40 mg) by 11/01 Generalized abdominal mouth 1 time a 21 pain day in the morning for 14 days, THEN 1 capsule (20 mg) 1 time a day in the morning. omeprazole (PRILOSEC) 20 Take 1 capsule 30 capsule 0 0 05/13 Discontinued mg capsuleIndications: (20 mg) by 07/02 (Reorder) Generalized abdominal mouth 1 time a 21 pain day in the morning documented as of this encounter (statuses as of 05/31/2021) Active Problems Problem Noted Date Chronic maxillary sinusitis 06/26/2020 Overview: Suspected RIGHT sided odontogenic sinus itis - involving R max/ethmoid/frontal. S/p R sided anterior ethmoidectomy and m axillary antrostomy 06/20/2020 Pure hypercholesterolemia 02/23/2020 SVT (supraventricular tachycardia) 02/23/2020 Obesity with body mass index of 30.0-39.9 03/19/2019 Severe episode of recurrent major depressive disorder, without psychotic 01/13/2018 features Gastroesophageal reflux disease 08/22/2017 Chronic bilateral low back pain without sciatica 03/13 Urinary, incontinence, stress female 03/27/2015 Fibromyalgia 03/11/2014 Other specified anxiety disorders documented as of this encounter (statuses as of 05/31/2021) Immunizations Name Administration Dates Next Due Influenza Vaccine,unspecified 07/13/2018, 08/09/2017 TDAP 12/10/2018 documented as of this encounter Social History Tobacco Use Types Packs/Day Years Used Date Never Smoker Smokeless Tobacco: Never Used Alcohol Use Standard Drinks/Week Comments Yes 0 (1 standard drink = 0.6 oz pure alcoho l) 3 drinks/ month Alcohol Habits Answer Date Recorded How often do you have a drink containing alcohol? Not asked How many drinks containing alcohol do you have on a Not aske d typical day when you are drinking? How often do you have six or more drinks on one Not asked occasion? Comment: 3 drinks/ month 06/14/2020 Sexually Active Control Partners Comments Yes None, Surgical Male tubal ligation Sex Assigned at Date Recorded Not on file documented as of this encounter Last Filed Vital Signs Vital Sign Reading Time Taken Comments Blood Pressure 118/68 05/31/2021 8:00 AM CDT Pulse 76 05/31/2021 8:00 AM CDT Temperature - - Respiratory Rate 16 05/31/2021 8:00 AM CDT Oxygen Saturation 98% 05/31/2021 8:00 AM CDT Inhaled Oxygen Concentration - - Weight 115.8 kg (255 lb 3.2 oz) 05/31/2021 8:00 AM CDT Height - - Body Mass Index 41.19 01/28/2021 4:22 PM CDT documented in this encounter Functional Status Functional Status Response Date of Assessment Is the person deaf or does he/she have serious difficulty No 05/10/2020 hearing? Is this person blind or does he/she have difficulty No 05/10/2020 seeing even when wearing glasses? Do you have difficulty with walking, balance, climbing No 06/29/2020 stairs, or had a fall in the last 3 months? Does the patient have difficulty dressing or bathing? No 02/23/2020 Because of a physical, mental, or emotional condition; No 02/23/2020 does this person have difficulty doing errands alone such as visiting a doctor's office or shopping? Cognitive Status Response Date of Assessment Because of a physical, mental, or emotional condition; No 02/23/2020 does this person have serious difficulty concentrating, remembering, or making decisions? documented as of this encounter Patient Instructions Patient InstructionsEva Zhou PA-C - 05/31/2021 8:22 AM CDT Take 2 capsules of omeprazole first thing in the "morning" 1 hour before food or other pills. After 2 weeks, decrease this to 1 pill in the morning. IF your symptoms completely resolve - GREAT! Let me know. If not, we'll move forward with getting an EGD done. Try to eat frequent small meals. Avoid greasy or spicy foods. Coffee in moderation. Limit caffeine and carbonated beverages. Increase fiber intake. If not through diet, try 1 tbsp of metamucil a day. Aim for 64 ounces of water. We will wait to see how things go, BUT we do want to keep monitoring your mood. If symptoms don't improve, we could increase either your cymbalta or your buspar. documented in this encounter Plan of Treatment Name Type Priority Associated Diagnoses Order S [facility] CLINIC REFERRAL Referral Routine Generalized abdominal Ord ered: 05/31/2021 ENDOSCOPY NON ONE CHART pain Gastroesophageal reflux disease, unspecified whether esophagitis present documented as of this encounter Implants Implanted Type Area Registered Respiratory Technician Device Shelf Model / Identifier Expiration Serial / Lot Date Stnt Sinus Mini Propel 16mm N [id number] - [id number] ENT/Den ta Right: INTERSECT ENT 05/13/2021 [id number] / Implanted: 06/20/2020 by Alexx Ruffin MD at [facility] (Quantity not on file) l/Plastic NOSE / s [id number] documented as of this encounter Visit Diagnoses Diagnosis Gastroesophageal reflux disease, unspeci fied whether esophagitis present - Primary Generalized abdominal pain Abdominal pain, generalized documented in this encounter
[~2021-07-05 11:22] MED LIST: Midazolam 1 MG/ML 2 ML SDV ONE; Propofol 200 MG/20 ML SDV ONE
[2021-07-05] MEDS ORDERED: Sodium Chloride 0.9% 10 ML Syringe FLUSH PRN (11:30)
[2021-07-05] MEDS: Lactated Ringers 1,000 ML IV SCH (11:47)
[2021-07-05] MEDS ORDERED: Lidocaine 2% 5 ML SDV ONE (11:55)
[2021-07-05] MEDS ORDERED: Propofol 200 MG/20 ML SDV ONE (11:55)
[2021-07-05] MEDS ORDERED: Midazolam 1 MG/ML 2 ML SDV ONE (11:55)
--- NOTE | 2021-07-05 12:04 | PCM.PN ---
- General Info Date of Service: 07/05/21 - Review of Systems Systems Review Comment:: 50-year-old female with history of GERD and burning abdominal pain referred for EGD. She is medically stable to proceed today. Her recent history and physical is reviewed and no significant changes are noted. I have discussed the proposed EGD with the patient. She agrees to proceed accepting risks. - Patient Data Vitals - Most Recent: Last Vital Signs Temp 98.1 F 07/05/21 11:50 Pulse 74 07/05/21 11:50 Resp 16 07/05/21 11:50 BP 128/71 07/05/21 11:50 Pulse Ox 96 07/05/21 11:50 Weight - Most Recent: 115.666 kg Lab Results Last 24 Hours: Laboratory Results - last 24 hr 07/05/21 Range/Units 11:30 Urine HCG, Qual Negative Med Orders - Current: Current Medications Lactated Ringer's (Ringers, Lactated) 1,000 mls @ 125 mls/hr IV ASDIRECTED DESTINEY Last Admin: 07/05/21 11:47 Dose: 125 mls/hr Documented by: Sodium Chloride (Sodium Chloride 0.9% 10 Ml Syringe) 10 ml FLUSH ASDIRECTED PRN PRN Reason: Keep Vein Open Discontinued Medications Midazolam HCl (Midazolam 1 Mg/Ml 2 Ml Sdv) Confirm Administered Dose 2 mg .ROUTE .STK-MED ONE Stop: 07/05/21 08:17 Propofol (Propofol 200 Mg/20 Ml Sdv) Confirm Administered Dose 200 mg .ROUTE .STK-MED ONE Stop: 07/05/21 08:17 - Patient Data Lab Results Last 24 hrs: Laboratory Results - last 24 hr 07/05/21 Range/Units 11:30 Urine HCG, Qual Negative Sepsis Event Note - Focused Exam Vital Signs: Vital Signs Temp Pulse Resp BP Pulse Ox 07/05/21 11:50 98.1 F 74 16 128/71 96 - Problem List Review Problem List Initiated/Reviewed/Updated: Yes - My Orders Last 24 Hours: My Active Orders 07/05/21 11:30 Patient Status [ADT] Routine Peripheral IV Care [RC] . DIRECTED Verify Patient Consent Obtain [RC] ASDIRECTED Lactated Ringers [Ringers, Lactated] 1,000 ml IV ASDIRECTED Sodium Chloride 0.9% [Saline Flush] 10 ml FLUSH ASDIRECTED PRN Peripheral IV Insertion Adult [OM.PC] Routine - Assessment Assessment:: GERD Abdominal pain - Plan Plan:: EGD
--- NOTE | 2021-07-05 12:26 | PCM.OPNOTE ---
- General Post-Op/Procedure Note Date of Surgery/Procedure: 07/05/21 Operative Procedure(s): EGD with Biopsy Findings: Gastritis with erosions in antrum Mild inflammation at GE Jct. Pre Op Diagnosis: Abdominal pain. GERD Post-Op Diagnosis: Gastritis. Reflux esophagitis [place]est[place] [facility] [place]geon: Jason Min Pathology: Biopsies of Gastric Antrum and GE Jct EBL in mLs: 3 Complications: None Condition: Good
[2021-07-05 13:02] VITALS: BP 110/64; PULSE 67
--- NOTE | 2021-07-05 13:02 | OR ---
Date of Procedure: 07/05/2021 PREOPERATIVE DIAGNOSIS: Gastroesophageal reflux disease and abdominal pain. POSTOPERATIVE DIAGNOSIS: Gastritis with erosions and reflux esophagitis. OPERATION PERFORMED: Esophagogastroduodenoscopy with biopsy. INDICATIONS FOR SURGERY: This 50-year-old female has been having some symptoms of abdominal pain and abdominal burning discomfort. She also has GERD symptoms. FINDINGS: In the patient's gastric antrum, there is inflammation of the mucosa with several small superficial erosions. The remainder of the stomach appears unremarkable. The GE junction does also show some mild irregularity and mild inflammation, but the remainder of the esophagus appears normal. The patient's duodenum also showed some mild inflammation in the duodenal bulb. DESCRIPTION OF PROCEDURE: The patient was taken to the operating room. She was given intravenous sedation and with her in the left lateral decubitus position, the Olympus gastroscope was advanced through a mouth guard into the oral cavity. Under direct visualization, the scope was advanced through the oropharynx into the esophagus and then down through the esophagus, stomach, and into the duodenum where examination to the 3rd portion was performed. After examining the duodenum, the scope was withdrawn back into the stomach where inflammation and erosions were seen in the antrum, and in this area biopsies were taken to rule out H pylori. The remainder of the stomach is examined including retroflexed examination of the fundus. The GE junction was also examined and random biopsies were taken here because of the patient's symptoms and inflammation. The exam was then completed and the scope removed. The patient was then taken from the operating room in satisfactory condition. ESTIMATED BLOOD LOSS: 3 mL. COMPLICATIONS: None. PROGNOSIS: Good. COLE Min MD /[id number]
== END 2021-07-05 13:50 | disposition home or self-care (01) ==
LOC: LL.SDS 11:22
PROVIDERS: ATTEND Surgery
DX: K29.50 Unspecified chronic gastritis without bleeding (principal); B96.81 Helicobacter pylori [H. pylori] as the cause of diseases classified elsewhere; K21.00 Gastro-esophageal reflux disease with esophagitis, without bleeding; K25.9 Gastric ulcer, unspecified as acute or chronic, without hemorrhage or perforation; F41.9 Anxiety disorder, unspecified; F32.9 Major depressive disorder, single episode, unspecified; E78.00 Pure hypercholesterolemia, unspecified; E66.9 Obesity, unspecified; M79.7 Fibromyalgia; K21.9 Gastro-esophageal reflux disease without esophagitis; Z68.41 Body mass index [BMI] 40.0-44.9, adult; Z79.899 Other long term (current) drug therapy
CPT/HCPCS: 00731; 81025; J2250; J2704; J7120

== ENCOUNTER 2023-03-14 08:02 | Emergency (ER) | payer BC ==
[2023-03-14] MEDS ORDERED: Nitroglycerin 0.4 MG Tab.SL ONE (08:27)
[2023-03-14] MEDS ORDERED: Aspirin 81 MG Tab.Chew ONE (08:27)
[2023-03-14] MEDS ORDERED: Nitroglycerin 0.4 MG Tab.SL SL ONE (08:28)
[2023-03-14] MEDS: Aspirin 325 MG Tab PO ONE ×2 (08:30→08:38)
[2023-03-14] MEDS ORDERED: Aspirin 81 MG Tab.Chew PO ONE (08:32)
[2023-03-14] MEDS ORDERED: Sodium Chloride 0.9% 10 ML Syringe FLUSH PRN (08:33)
[2023-03-14 08:39] LABS: BASOPHILS ABSOLUTE AUTO 0.04 K/uL (0.00-0.20); BASOPHILS PERCENT AUTO 0.7 % (0.0-2.0); EOSINOPHILS ABSOLUTE AUTO 0.19 K/uL (0.00-0.50); EOSINOPHILS PERCENT AUTO 3.4 % (0.0-5.0); HEMATOCRIT 38.9 % (34.0-46.0); HEMOGLOBIN 12.6 g/dL (11.7-15.5); LYMPHOCYTES ABSOLUTE AUTO 2.57 K/uL (0.50-3.50); MEAN CORPUSCULAR HEMOGLOBIN 30.3 pg (28.2-33.3); MEAN CORPUSCULAR HGB CONC 32.4 g/dL (31.7-36.0); MEAN CORPUSCULAR VOLUME 93.5 fL (84.0-98.0); MONOCYTES ABSOLUTE AUTO 0.45 K/uL (0.00-1.00); MONOCYTES PERCENT AUTO 8.1 % (2.0-14.0); NEUTROPHILS ABSOLUTE AUTO 2.34 K/uL (1.40-7.00); NEUTROPHILS PERCENT AUTO 41.8 % (45.0-80.0); PLATELET COUNT,PLT 315 K/uL (150-350); RED BLOOD CELL COUNT 4.16 M/uL (3.77-5.09); RED CELL DISTRIBUTION WIDTH 13.7 % (11.2-14.1); WHITE BLOOD CELL COUNT,WBC 5.6 K/uL (4.0-10.2)
[2023-03-14 08:49] LABS: ALBUMIN 4.3 g/dL (3.4-5.0); ANION GAP 18.1 meq/L (7-15); BILIRUBIN TOTAL 0.5 mg/dL (0.2-1.0); CALCIUM 9.3 mg/dL (8.5-10.1); CARBON DIOXIDE,CO2 26.2 mmol/L (21.0-32.0); CREATININE 0.88 mg/dL (0.51-1.17); EST CRCL DRUG DOSING (CG) 70.8 mL/min; MAGNESIUM 1.9 mg/dL (1.8-2.4); POTASSIUM,K 3.3 mmol/L (3.5-5.1); PROTEIN TOTAL,TP 8.5 g/dL (6.4-8.2)
[2023-03-14] MEDS ORDERED: Potassium Chloride 20 MEQ Tab.ER PO ONE (09:22)
[2023-03-14 09:35] VITALS: BP 111/70; PULSE 73
== END 2023-03-14 10:00 | disposition home or self-care (01) ==
LOC: LL.ED 08:02 → SUPCPDRO 08:02 → LL.ED 10:00
DX: R07.89 Other chest pain (principal); I25.10 Atherosclerotic heart disease of native coronary artery without angina pectoris; I25.2 Old myocardial infarction; K21.9 Gastro-esophageal reflux disease without esophagitis; M19.90 Unspecified osteoarthritis, unspecified site; E66.9 Obesity, unspecified; Z68.41 Body mass index [BMI] 40.0-44.9, adult; Z79.82 Long term (current) use of aspirin; Z79.899 Other long term (current) drug therapy
CPT/HCPCS: 36415; 71045; 80053; 82550; 83605; 83690; 83735; 83880; 84484; 85025; 85379; 93005; 93010; 99284; 99285; A9270-GY

== ENCOUNTER 2024-08-21 14:45 | Emergency (ER) | payer BC ==
[2024-08-21 15:05] LABS: BASOPHILS ABSOLUTE AUTO 0.03 K/uL (0.00-0.20); BASOPHILS PERCENT AUTO 0.4 % (0.0-2.0); EOSINOPHILS ABSOLUTE AUTO 0.23 K/uL (0.00-0.50); EOSINOPHILS PERCENT AUTO 2.9 % (0.0-5.0); HEMATOCRIT 38.9 % (34.0-46.0); HEMOGLOBIN 12.7 g/dL (11.7-15.5); IMMATURE GRAN ABSOLUTE AUTO 0.01 10^3/uL (0.00-0.50); IMMATURE GRAN PERCENT AUTO 0.1 % (0.0-5.0); LYMPHOCYTES ABSOLUTE AUTO 1.96 K/uL (0.50-3.50); LYMPHOCYTES PERCENT AUTO 24.5 % (10.0-50.0); MEAN CORPUSCULAR HEMOGLOBIN 30.5 pg (28.2-33.3); MEAN CORPUSCULAR HGB CONC 32.6 g/dL (31.7-36.0); MEAN CORPUSCULAR VOLUME 93.3 fL (84.0-98.0); MONOCYTES ABSOLUTE AUTO 0.48 K/uL (0.00-1.00); NEUTROPHILS ABSOLUTE AUTO 5.29 K/uL (1.40-7.00); NEUTROPHILS PERCENT AUTO 66.1 % (45.0-80.0); PLATELET COUNT,PLT 242 K/uL (150-350); RED BLOOD CELL COUNT 4.17 M/uL (3.77-5.09); RED CELL DISTRIBUTION WIDTH 12.5 % (11.2-14.1)
[2024-08-21] MEDS: Sodium Chloride 0.9% 10 ML Syringe FLUSH PRN (15:13)
[2024-08-21] MEDS: Ondansetron 4 MG/2 ML SDV IVPUSH ONE (15:13)
[2024-08-21] MEDS: Morphine 4 MG/ML Syringe IVPUSH ONE (15:14)
[2024-08-21] MEDS: Morphine 4 MG/ML Syringe ONE (15:14)
[2024-08-21] MEDS: Ondansetron 4 MG/2 ML SDV ONE (15:14)
[2024-08-21 15:24] LABS: ALBUMIN 4.1 g/dL (3.4-5.0); BILIRUBIN TOTAL 0.4 mg/dL (0.2-1.0); CALCIUM 9.4 mg/dL (8.5-10.1); CREATININE 0.84 mg/dL (0.51-1.17); EST CRCL DRUG DOSING (CG) 76.18 mL/min; MAGNESIUM 2.2 mg/dL (1.8-2.4); PROTEIN TOTAL,TP 7.6 g/dL (6.4-8.2)
[2024-08-21 15:29] LABS: LACTIC ACID 0.9 mmol/L (0.4-2.0)
[2024-08-21] MEDS: Ketorolac 15 MG/ML SDV IVPUSH ONE (15:34)
[2024-08-21 15:51] LABS: APPEARANCE,URINE CLEAR; BILIRUBIN,URINE NEGATIVE (NEGATIVE); COLOR,URINE YELLOW; GLUCOSE,URINE NEGATIVE (NEGATIVE); KETONES,URINE NEGATIVE (NEGATIVE); LEUKOCYTE ESTERASE,URINE NEGATIVE (NEGATIVE); NITRITE,URINE NEGATIVE (NEGATIVE); OCCULT BLOOD,URINE NEGATIVE (NEGATIVE); PH,URINE 6.5 (5.0-9.0); PROTEIN,URINE NEGATIVE (NEGATIVE); UROBILINOGEN,URINE 0.2 E.U./dL (0.2-1.0)
[2024-08-21] MEDS ORDERED: HYDROmorphone 2 MG Tab PO ONE (17:08)
[2024-08-21] MEDS: Take Home: traMADol 50 MG, 4 Tab Pack PO ONE (19:04)
[2024-08-21] MEDS: Take Home: predniSONE 20 MG, 4 Tab Pack PO ONE (19:04)
[2024-08-21] MEDS: methylPREDNISolone Sodium Succinate 125 MG/2 ML SDV IVPUSH ONE (19:05)
[2024-08-21 19:08] VITALS: PULSE 63
[2024-08-21 19:10] VITALS: BP 108/66
[2024-08-21] MEDS: methylPREDNISolone Sodium Succinate 125 MG/2 ML SDV ONE (19:19)
== END 2024-08-21 19:33 | disposition home or self-care (01) ==
LOC: LL.ED 14:45
DX: R10.31 Right lower quadrant pain (principal); R10.12 Left upper quadrant pain; R10.32 Left lower quadrant pain; R10.11 Right upper quadrant pain; R10.84 Generalized abdominal pain; B34.9 Viral infection, unspecified; I25.2 Old myocardial infarction; I25.10 Atherosclerotic heart disease of native coronary artery without angina pectoris; K21.9 Gastro-esophageal reflux disease without esophagitis; M19.90 Unspecified osteoarthritis, unspecified site; E66.9 Obesity, unspecified; Z79.82 Long term (current) use of aspirin; Z79.899 Other long term (current) drug therapy
CPT/HCPCS: 36415; 74019; 74176; 80053; 81003; 83605; 83735; 85025; 87426-QW; 87651-QW; 96374; 96375; 99283; 99284-25; A9270-GY; J1885; J2270; J2405; J2919; J3490

== ENCOUNTER 2024-10-14 10:42 | Day surgery (SDC) | payer BC ==
[2024-10-14] MEDS ORDERED: Sodium Chloride 0.9% 10 ML Syringe FLUSH PRN (11:00)
[2024-10-14] MEDS: Lactated Ringers 1,000 ML IV SCH (11:42)
[2024-10-20 16:11] VITALS: BP 120/52; PULSE 78
== END 2024-10-14 13:35 | disposition home or self-care (01) ==
LOC: LL.SDS 10:42
PROVIDERS: ATTEND Surgery
DX: K52.9 Noninfective gastroenteritis and colitis, unspecified (principal); K21.9 Gastro-esophageal reflux disease without esophagitis; E78.5 Hyperlipidemia, unspecified; F41.9 Anxiety disorder, unspecified; F33.2 Major depressive disorder, recurrent severe without psychotic features; Z79.899 Other long term (current) drug therapy
CPT/HCPCS: 00811; J2250; J2704; J7120

== ENCOUNTER 2024-10-16 21:35 | Emergency (ER) | payer BC ==
[2024-10-16 21:47] VITALS: BP 125/78; PULSE 77
[2024-10-16] MEDS: Take Home: oxyCODONE HCl 5 MG Tab, 5 Tab Pack PO ONE (22:10)
== END 2024-10-16 22:27 | disposition home or self-care (01) ==
LOC: LL.ED 21:35
DX: R10.84 Generalized abdominal pain (principal); G89.29 Other chronic pain; I25.10 Atherosclerotic heart disease of native coronary artery without angina pectoris; I25.2 Old myocardial infarction; K21.9 Gastro-esophageal reflux disease without esophagitis; E66.9 Obesity, unspecified; Z79.899 Other long term (current) drug therapy
CPT/HCPCS: 99283; A9270; 99284